=== PATIENT | female | born 1995 | race Caucasian/White ===

== ENCOUNTER → 2019-07-24 | Outpatient (CLI) | payer BC ==
[~2019-07-24] MED LIST: ALBU90OI INH; AMOX500 PO; BIRTH CONTROL; Bactrim Ds Tab1 EACH PO; CIPR500 PO; CODACE30 PO; CODACEE120 PO; CONEST.625 PO; HYDACE5 PO; HYDR1TAB94 PO; IBUP600 PO; IBUP800 PO; Norco 5-325 Ta1 EACH PO; PHENA200 PO; PRED10 PO; PRODEXEL PO; Prednisone20 MG PO; Prilosec20 MG PO; RXCODACET PO; RXHYD5325 PO; Zofran Odt4 MG SL; Zofran8 MG PO
[2019-07-27 00:06] LABS: CHLAMYDIA TRACHOMATIS, NAA Negative (Negative); NEISSERIA GONORRHOEAE, NAA Negative (Negative)
== END ==
LOC: LAB 17:00 → LAB SHORT 17:00
PROVIDERS: Obstetrics & Gynecology
DX: Z34.00 Encounter for supervision of normal first pregnancy, unspecified trimester (principal)
CPT/HCPCS: 87491; 87591; G0123

== ENCOUNTER → 2019-08-22 | Outpatient (CLI) | payer BC | END | disposition home or self-care (01) | LOC: LAB SHORT 16:25 → LAB 16:25 | DX: R30.0 Dysuria (principal) | CPT/HCPCS: 87086 ==

== ENCOUNTER 2019-09-05 00:08 | Day surgery (SDC) | payer BC ==
[2019-09-05] MEDS ORDERED: UNISOM25 MG PO (14:24)
[2019-09-05] MEDS ORDERED: B12 ACTIVE1000 MCG PO (14:25)
== END 2019-09-05 16:33 | disposition home or self-care (01) ==
LOC: ATC 00:08
DX: O21.0 Mild hyperemesis gravidarum (principal); O99.332 Smoking (tobacco) complicating pregnancy, second trimester; F17.210 Nicotine dependence, cigarettes, uncomplicated; Z3A.15 15 weeks gestation of pregnancy; Z88.0 Allergy status to penicillin; Z88.5 Allergy status to narcotic agent; Z88.1 Allergy status to other antibiotic agents
CPT/HCPCS: 96361; 96365; 96375; J2405; J3411; J3475; J7042; J7120

== ENCOUNTER 2019-09-12 03:07 | Day surgery (SDC) | payer BC ==
[~2019-09-12 03:07] MED LIST changes: +B12 ACTIVE1000 MCG PO; +UNISOM25 MG PO
== END 2019-09-12 16:17 | disposition home or self-care (01) ==
LOC: ATC 03:07
DX: O21.0 Mild hyperemesis gravidarum (principal); O99.330 Smoking (tobacco) complicating pregnancy, unspecified trimester; F17.210 Nicotine dependence, cigarettes, uncomplicated; Z3A.00 Weeks of gestation of pregnancy not specified; Z88.5 Allergy status to narcotic agent; Z88.0 Allergy status to penicillin; Z88.1 Allergy status to other antibiotic agents
CPT/HCPCS: J2405; J3411; J3475; J7042; J7120

== ENCOUNTER 2019-09-19 00:08 | Day surgery (SDC) | payer BC ==
[2019-09-19] MEDS ORDERED: PRENATAL TABLE1 EAC2 PO (14:53)
== END 2019-09-19 15:33 | disposition home or self-care (01) ==
LOC: ATC 00:08
DX: O21.0 Mild hyperemesis gravidarum (principal); O99.330 Smoking (tobacco) complicating pregnancy, unspecified trimester; F17.210 Nicotine dependence, cigarettes, uncomplicated; Z3A.00 Weeks of gestation of pregnancy not specified; Z88.1 Allergy status to other antibiotic agents; Z88.0 Allergy status to penicillin; Z88.5 Allergy status to narcotic agent
CPT/HCPCS: 96360; J2405; J3411; J3475; J7042; J7120

== ENCOUNTER 2019-09-26 00:09 | Day surgery (SDC) | payer BC, OTHER ==
[~2019-09-26 00:09] MED LIST changes: -B12 ACTIVE1000 MCG PO; +PRENATAL TABLE1 EAC2 PO; +VITAMIN B122500 MCG PO
== END 2019-09-26 16:29 | disposition home or self-care (01) ==
LOC: ATC 00:09
DX: O21.0 Mild hyperemesis gravidarum (principal); O99.330 Smoking (tobacco) complicating pregnancy, unspecified trimester; F17.210 Nicotine dependence, cigarettes, uncomplicated; Z3A.00 Weeks of gestation of pregnancy not specified; Z88.0 Allergy status to penicillin; Z88.5 Allergy status to narcotic agent; Z88.1 Allergy status to other antibiotic agents
CPT/HCPCS: 96361; 96365; 96375; J2405; J3411; J3475; J7042; J7120

== ENCOUNTER → 2019-11-26 | Outpatient (CLI) | payer OTHER ==
[2019-11-26 13:31] LABS: BASOPHILS ABSOLUTE AUTO 0.03 K/mm3 (0.00-0.23); BASOPHILS PERCENT AUTO 0 % (0-2); EOSINOPHILS ABSOLUTE AUTO 0.09 K/mm3 (0.00-0.68); EOSINOPHILS PERCENT AUTO 1 % (0-6); Hematocrit 37.7 % (33.0-51.0); Hemoglobin 12.4 g/dL (11.5-16.0); IMMATURE GRAN ABSOLUTE AUTO 0.09 K/mm3 (0.00-0.10); IMMATURE GRAN PERCENT AUTO 1 % (0-1); LYMPHOCYTES ABSOLUTE AUTO 2.42 K/mm3 (0.84-5.20); LYMPHOCYTES PERCENT AUTO 18 % (21-46); MONOCYTES ABSOLUTE AUTO 0.58 K/mm3 (0.16-1.47); MONOCYTES PERCENT AUTO 4 % (4-13); Mean Corpuscular HGB 30.5 pg (26.0-34.0); Mean Corpuscular HGB Conc 32.9 g/dL (31.5-36.5); Mean Corpuscular Volume 93 fL (80-100); Mean Platelet Volume 11.9 fL (9.1-12.4); NEUTROPHILS ABSOLUTE AUTO 9.93 K/mm3 (1.96-9.15); NEUTROPHILS PERCENT AUTO 76 % (41-73); Platelet Count 257 K/mm3 (150-400); RDW Coefficient Variation 12.6 % (11.7-14.2); RDW Standard Deviation 42.8 fL (35.1-46.3); Red Blood Cell Count 4.07 M/mm3 (3.80-5.20); White Blood Cell Count 13.14 K/mm3 (4.00-11.30)
== END | disposition home or self-care (01) ==
LOC: LAB 12:40 → LAB SHORT 12:40
PROVIDERS: Obstetrics & Gynecology
DX: Z34.03 Encounter for supervision of normal first pregnancy, third trimester (principal); Z3A.28 28 weeks gestation of pregnancy
CPT/HCPCS: 82950; 85025

== ENCOUNTER 2020-02-13 12:55 | Inpatient (IN) | payer OTHER ==
[~2020-02-13] VITALS: Ht 154.9 cm; Wt 97.5 kg
[2020-02-13 13:43] LABS: BASOPHILS ABSOLUTE AUTO 0.03 K/mm3 (0.00-0.23); BASOPHILS PERCENT AUTO 0 % (0-2); EOSINOPHILS ABSOLUTE AUTO 0.18 K/mm3 (0.00-0.68); EOSINOPHILS PERCENT AUTO 1 % (0-6); Hematocrit 34.9 % (33.0-51.0); IMMATURE GRAN ABSOLUTE AUTO 0.11 K/mm3 (0.00-0.10); IMMATURE GRAN PERCENT AUTO 1 % (0-1); LYMPHOCYTES ABSOLUTE AUTO 3.68 K/mm3 (0.84-5.20); LYMPHOCYTES PERCENT AUTO 21 % (21-46); MONOCYTES ABSOLUTE AUTO 1.37 K/mm3 (0.16-1.47); MONOCYTES PERCENT AUTO 8 % (4-13); Mean Corpuscular HGB 31.1 pg (26.0-34.0); Mean Corpuscular HGB Conc 34.4 g/dL (31.5-36.5); Mean Corpuscular Volume 90 fL (80-100); Mean Platelet Volume 10.8 fL (9.1-12.4); NEUTROPHILS ABSOLUTE AUTO 11.98 K/mm3 (1.96-9.15); NEUTROPHILS PERCENT AUTO 69 % (41-73); Platelet Count 307 K/mm3 (150-400); RDW Standard Deviation 43.1 fL (35.1-46.3); Red Blood Cell Count 3.86 M/mm3 (3.80-5.20); White Blood Cell Count 17.35 K/mm3 (4.00-11.30)
[2020-02-14 03:26] LABS: PO2 Cord - Arterial < 13 mmHg (16-20); pH Cord - Arterial 7.29 (7.28-7.35)
[2020-02-14 03:27] LABS: PCO2 Cord - Venous 38.9 mmHg (40-50); PO2 Cord - Venous 29.8 mmHg (28-32); pH Umbilical Cord - Venous 7.38 (7.26-7.35)
--- NOTE | 2020-02-14 03:49 | NUR ---
02/14/20 0349 DarinVarshai A BABY BORN AT 0315. SEGMENT OF CORD GIVEN TO RT. SAMPLE OF BLOOD GIVEN TO FBP RN.
[2020-02-14 10:33] LABS: BASOPHILS ABSOLUTE AUTO 0.06 K/mm3 (0.00-0.23); BASOPHILS PERCENT AUTO 0 % (0-2); EOSINOPHILS PERCENT AUTO 0 % (0-6); Hematocrit 34.3 % (33.0-51.0); Hemoglobin 11.7 g/dL (11.5-16.0); IMMATURE GRAN ABSOLUTE AUTO 0.22 K/mm3 (0.00-0.10); IMMATURE GRAN PERCENT AUTO 1 % (0-1); LYMPHOCYTES ABSOLUTE AUTO 1.39 K/mm3 (0.84-5.20); LYMPHOCYTES PERCENT AUTO 5 % (21-46); MONOCYTES ABSOLUTE AUTO 0.98 K/mm3 (0.16-1.47); MONOCYTES PERCENT AUTO 3 % (4-13); Mean Corpuscular HGB 31.2 pg (26.0-34.0); Mean Corpuscular HGB Conc 34.1 g/dL (31.5-36.5); Mean Corpuscular Volume 92 fL (80-100); Mean Platelet Volume 11.3 fL (9.1-12.4); NEUTROPHILS ABSOLUTE AUTO 28.06 K/mm3 (1.96-9.15); NEUTROPHILS PERCENT AUTO 91 % (41-73); Platelet Count 303 K/mm3 (150-400); RDW Coefficient Variation 12.9 % (11.7-14.2); RDW Standard Deviation 42.6 fL (35.1-46.3); Red Blood Cell Count 3.75 M/mm3 (3.80-5.20); White Blood Cell Count 30.71 K/mm3 (4.00-11.30)
--- NOTE | 2020-02-15 12:59 | NUR ---
ASSIST VERY WIDE SPACED BREASTS. L BREASTS APPROX 2 CUP SIZE SMALLER THAN R BREAST. MOM WITH HX OF PCOS. INSTRUCTED MOM TO HAVE HER PUMP BROUGHT IN SO SHE CAN START PUMPING DIRECTLY AFTER EACH FEEDING TO MAXIMIZE MILK PRODUCTION. I WAS EASILY ABLE TO EXPRESS FLUID OUT OF BOTH BREAST. MOM HAS BEEN USING A SHIELD. DEMONSTRATED CORRECT PLACEMENT OF SHIELD AND INSTRUCTIONS FOR SHIELD WEANING GIVEN. DEMONSTRATED FOKOT BALL AND LAID BACK POSITION. FOB AND MOM BOTH VERY LOVING WITH BABY.
[2020-02-15 15:53] LABS: BASOPHILS ABSOLUTE AUTO 0.06 K/mm3 (0.00-0.23); BASOPHILS PERCENT AUTO 0 % (0-2); EOSINOPHILS ABSOLUTE AUTO 0.22 K/mm3 (0.00-0.68); EOSINOPHILS PERCENT AUTO 1 % (0-6); Hematocrit 29.2 % (33.0-51.0); Hemoglobin 9.8 g/dL (11.5-16.0); IMMATURE GRAN ABSOLUTE AUTO 0.18 K/mm3 (0.00-0.10); IMMATURE GRAN PERCENT AUTO 1 % (0-1); LYMPHOCYTES ABSOLUTE AUTO 4.86 K/mm3 (0.84-5.20); LYMPHOCYTES PERCENT AUTO 20 % (21-46); MONOCYTES ABSOLUTE AUTO 1.93 K/mm3 (0.16-1.47); MONOCYTES PERCENT AUTO 8 % (4-13); Mean Corpuscular HGB 31.1 pg (26.0-34.0); Mean Corpuscular HGB Conc 33.6 g/dL (31.5-36.5); Mean Corpuscular Volume 93 fL (80-100); Mean Platelet Volume 10.9 fL (9.1-12.4); NEUTROPHILS ABSOLUTE AUTO 16.98 K/mm3 (1.96-9.15); NEUTROPHILS PERCENT AUTO 70 % (41-73); Platelet Count 254 K/mm3 (150-400); RDW Coefficient Variation 13.2 % (11.7-14.2); RDW Standard Deviation 44.2 fL (35.1-46.3); Red Blood Cell Count 3.15 M/mm3 (3.80-5.20); White Blood Cell Count 24.23 K/mm3 (4.00-11.30)
[2020-02-15] MEDS ORDERED: IBUP800 (16:14)
[2020-02-15] MEDS ORDERED: Percocet 5-3251 EACH (16:14)
== END 2020-02-15 18:22 | disposition home or self-care (01) | DRG 788 ==
LOC: OBS 12:55 → BC 13:02
PROVIDERS: ADMIT Obstetrics & Gynecology
PROC: 10D00Z1 Extraction of Products of Conception, Low, Open Approach (ICD-10-PCS; principal; 2020-02-14 07:00)
DX: O76 Abnormality in fetal heart rate and rhythm complicating labor and delivery (principal); Z3A.39 39 weeks gestation of pregnancy; Z37.0 Single live birth; O69.81X0 Labor and delivery complicated by cord around neck, without compression, not applicable or unspecified; O69.89X0 Labor and delivery complicated by other cord complications, not applicable or unspecified; O99.334 Smoking (tobacco) complicating childbirth; F17.210 Nicotine dependence, cigarettes, uncomplicated
CPT/HCPCS: 36415; 51702; 82803; 85025; 86850; 86900; 86901; J0690; J1100; J1885; J2001; J2370; J2405; J2590; J2765; J3010; J7120

== ENCOUNTER → 2022-05-26 | Outpatient (CLI) | payer OTHER ==
[~2022-05-26] MED LIST changes: +IBUP800; +Percocet 5-3251 EACH
== END | disposition home or self-care (01) ==
LOC: LAB SHORT 14:51 → LAB 14:51
DX: N39.0 Urinary tract infection, site not specified (principal)
CPT/HCPCS: 87077; 87086; 87186

== ENCOUNTER → 2022-08-07 | Outpatient (CLI) | payer OTHER | END | disposition home or self-care (01) | LOC: LAB SHORT 13:13 → LAB 13:13 | DX: N39.0 Urinary tract infection, site not specified (principal) | CPT/HCPCS: 87077; 87086; 87186 ==

== ENCOUNTER → 2023-08-28 | Outpatient (CLI) | payer OTHER | LOC: LAB 10:55 → LAB SHORT 10:55 | DX: N39.0 Urinary tract infection, site not specified (principal) | CPT/HCPCS: 87077; 87086; 87186 ==

== ENCOUNTER → 2024-09-07 | Outpatient (CLI) | payer OTHER ==
[2024-09-10 20:39] LABS: APTIMA MEDIA TYPE Urine; C. TRACHOMATIS BY TMA Negative (Negative); N. GONORRHOEAE BY TMA Negative (Negative); SPECIMEN SOURCE Urine
== END ==
LOC: LAB SHORT 11:39 → LAB 11:39
PROVIDERS: Obstetrics & Gynecology
DX: Z34.81 Encounter for supervision of other normal pregnancy, first trimester (principal)
CPT/HCPCS: 87491; 87591

== ENCOUNTER 2025-04-30 04:59 | Inpatient (IN) | payer OTHER ==
[2025-04-30] VITALS (20 sets, daily range): BP systolic 91–131; BP diastolic 51–76
[~2025-04-30] VITALS: Ht 154.9 cm; Wt 97.2 kg
[2025-04-30] MEDS ORDERED: Ondansetron HCl 2 MG / ML 2ML Vial IV PRN ×2 (05:05→09:05)
[2025-04-30] MEDS ORDERED: Methylergonovine Maleate 0.2MG / ML 1ML Amp IM PRN (05:05)
[2025-04-30] MEDS ORDERED: OXYTOCIN/RINGER'S LACTATE 500 ML IV PRN (05:05)
[2025-04-30] MEDS ORDERED: Carboprost Tromethamine 250 MCG/ML 1ML Amp IM PRN (05:05)
[2025-04-30] MEDS ORDERED: Tranexamic Acid 100 ML IV PRN (05:05)
[2025-04-30] MEDS ORDERED: Oxytocin 10 Unit / ML Vial IM PRN (05:05)
[2025-04-30] MEDS ORDERED: Citric Acid/Sodium Citrate 30 ML BTL PO SCH (05:10)
[2025-04-30] MEDS ORDERED: Metoclopramide HCl 5MG / ML 2ML Vial IV ONE ×2 (05:10→08:40)
[2025-04-30] MEDS ORDERED: CeFAZolin Sodium 2,000 MG in NS 100 ML IV SCH (05:10)
[2025-04-30] MEDS ORDERED: PANT20 PO (05:21)
[2025-04-30 05:39] LABS: Hematocrit 34.4 % (33.0-51.0); Hemoglobin 12.0 g/dL (11.5-16.0); Mean Corpuscular HGB Conc 34.9 g/dL (31.5-36.5); Mean Corpuscular Volume 91 fL (80-100); Platelet Count 362 K/mm3 (150-400); RDW Coefficient Variation 13.3 % (11.7-14.2); RDW Standard Deviation 44.7 fL (35.1-46.3)
[2025-04-30 05:44] LABS: NRBC ABSOLUTE 0.00 K/mm3 (0.00-0.02); NRBC Auto 0.0 /100 WBC (0.0-0.2)
[2025-04-30] MEDS ORDERED: FentaNYL Citrate 50 MCG/ML 2 ML Injection ONE (07:17)
[2025-04-30] MEDS ORDERED: Oxytocin 10 Unit / ML Vial ONE ×2 (07:38→08:15)
[2025-04-30] MEDS ORDERED: Phenylephrine HCl 100 MCG/ML-NS 10MLSYR (1MG/10ML) ONE (07:52)
[2025-04-30 07:53] LABS: BAND PERCENT MAN 1 % (0-8); BASOPHILS ABSOLUTE MAN 0.00 K/mm3 (0.00-0.23); BASOPHILS PERCENT MAN 0 % (0-2); EOSINOPHILS ABSOLUTE MAN 0.38 K/mm3 (0.00-0.68); EOSINOPHILS PERCENT MAN 2 % (0-6); LYMPHOCYTES ABSOLUTE MAN 6.95 K/mm3 (0.84-5.20); LYMPHOCYTES PERCENT MAN 36 % (21-46); MONOCYTES ABSOLUTE MAN 1.15 K/mm3 (0.16-1.47); MONOCYTES PERCENT MAN 6 % (4-13); MYELOCYTE ABSOLUTE MAN 0.38 K/mm3 (0.00-0.00); MYELOCYTE PERCENT MAN 2 % (0-0); NEUTROPHILS ABSOLUTE MAN 10.42 K/mm3 (1.96-9.15); SEG NEUTROPHILS PERCENT MAN 53 % (41-73)
[2025-04-30 08:26] LABS: pH Blood Arterial 7.35 (7.35-7.45)
[2025-04-30 08:31] LABS: pH Blood Venous 7.39 (7.34-7.37)
--- NOTE | 2025-04-30 08:35 | NUR ---
04/30/25 0835 ShavonHailey Sudheer VIABLE MALE BORN 811. WT 29OO GMS 6LB 6OZ; HEAD 13.5 IN; CHEST 12.5IN; LENGTH 20IN. APGARS 9/9. CORD BLOOD SAMPLE SENT W/Leonardo BOWER RN. R AND L FALLOPIAN TUBE SEGMENTS TO PATHOLOGY BY Miguel SAWANT, OBT; INTO OR 0739 RELATED TO OR DOORS INOPERABLE AND MAINTENANCE EVALUATING.
[2025-04-30] MEDS ORDERED: ePHEDrine Sulfate 50 MG/ML 1ML Injection IV PRN (08:40)
[2025-04-30] MEDS ORDERED: HydrALAZINE HCl 20 MG / ML 1ML Vial IV PRN (08:45)
[2025-04-30] MEDS ORDERED: Ketorolac Tromethamine 15mg Vial IV PRN (09:00)
[2025-04-30] MEDS ORDERED: Morphine Sulfate 4 MG/1 ML Injection IV PRN (09:10)
[2025-04-30] MEDS ORDERED: OxyCODONE 5 mg/Acetamin 325 mg TABLET PO PRN (09:15)
[2025-04-30] MEDS ORDERED: Rho(D) Immune Globulin 300 MCG / SYR IM ONE (09:15)
[2025-04-30] MEDS ORDERED: OXYTOCIN/RINGER'S LACTATE 500 ML IV SCH (09:15)
[2025-04-30] MEDS ORDERED: Magnesium Hydroxide Conc 10 ML UDC PO PRN (09:15)
[2025-04-30] MEDS ORDERED: Ketorolac Tromethamine 30mg Vial IV SCH (10:00)
[2025-05-01 04:32] VITALS: BP 110/55
[2025-05-01] MEDS ORDERED: Ketorolac Tromethamine 30mg Vial IV ONE (04:50)
[2025-05-01 05:42] LABS: BASOPHILS ABSOLUTE AUTO 0.05 K/mm3 (0.00-0.23); BASOPHILS PERCENT AUTO 0 % (0-2); EOSINOPHILS ABSOLUTE AUTO 0.33 K/mm3 (0.00-0.68); EOSINOPHILS PERCENT AUTO 2 % (0-6); Hematocrit 29.6 % (33.0-51.0); Hemoglobin 10.0 g/dL (11.5-16.0); IMMATURE GRAN ABSOLUTE AUTO 0.23 K/mm3 (0.00-0.10); IMMATURE GRAN PERCENT AUTO 1 % (0-1); LYMPHOCYTES ABSOLUTE AUTO 4.96 K/mm3 (0.84-5.20); LYMPHOCYTES PERCENT AUTO 22 % (21-46); MONOCYTES ABSOLUTE AUTO 2.18 K/mm3 (0.16-1.47); MONOCYTES PERCENT AUTO 10 % (4-13); Mean Corpuscular HGB Conc 33.8 g/dL (31.5-36.5); Mean Corpuscular Volume 91 fL (80-100); NEUTROPHILS ABSOLUTE AUTO 14.89 K/mm3 (1.96-9.15); NEUTROPHILS PERCENT AUTO 66 % (41-73); NRBC ABSOLUTE 0.00 K/mm3 (0.00-0.02); NRBC Auto 0.0 /100 WBC (0.0-0.2); Platelet Count 311 K/mm3 (150-400); RDW Coefficient Variation 13.6 % (11.7-14.2); RDW Standard Deviation 45.1 fL (35.1-46.3)
[2025-05-01 08:05] VITALS: BP 97/56
[2025-05-01] MEDS ORDERED: Prenatal Vit/FE Fumarate/FA 1 Tab PO SCH (09:00)
[2025-05-01 11:03] VITALS: BP 100/62
[2025-05-01] MEDS ORDERED: IBUP800 PO (12:01)
[2025-05-01] MEDS ORDERED: Percocet 5-3251 EACH (12:01)
[2025-05-01 15:18] VITALS: BP 119/66
[2025-05-01 17:49] VITALS: BP 111/55
== END 2025-05-01 18:38 | disposition home or self-care (01) | DRG 785 ==
LOC: BC 04:59
PROVIDERS: ADMIT Obstetrics & Gynecology
PROC: 10D00Z1 Extraction of Products of Conception, Low, Open Approach (ICD-10-PCS; principal; 2025-04-30 07:30)
PROC: 0UT70ZZ Resection of Bilateral Fallopian Tubes, Open Approach (ICD-10-PCS; 2025-04-30 07:30)
DX: O34.211 Maternal care for low transverse scar from previous cesarean delivery (principal); Z30.2 Encounter for sterilization; Z3A.39 39 weeks gestation of pregnancy; Z37.0 Single live birth; Z88.5 Allergy status to narcotic agent; Z88.1 Allergy status to other antibiotic agents; Z88.0 Allergy status to penicillin; O99.214 Obesity complicating childbirth; E66.01 Morbid (severe) obesity due to excess calories
CPT/HCPCS: 36415; 82803; 85025; 86850; 86900; 86901; 86923; 88302; A9270; J0690; J1885; J2371; J2405; J2590; J2765; J3010; J7120